=== PATIENT | male | born 1965 | race African-American/Black ===

== ENCOUNTER 2020-02-14 09:54 | Observation (INO) | payer OTHER ==
[~2020-02-14] VITALS: Ht 190.5 cm; Wt 93.7 kg
--- NOTE | 2020-02-14 09:54 | NUR ---
PATIENT TO ROOM VIA EMS. EMS REPORTED PATIENT RECIEVED THREE 0.4MG NITRO SL AND 324MG ASA AT THE [facility] JUST PRIOR TO ARRIVAL. MD AT BEDSIDE FOR EVAL
[2020-02-14 10:08] LABS: HEMATOCRIT 40.8 % (39.0-50.0); HEMOGLOBIN 13.1 g/dl (14.0-18.0); IMMATURE GRANULOCYTES 0.4 % (0.0-5.0); MEAN CELL VOLUME 93.4 fL CALC (80.0-100.0); MEAN CORPUSCULAR HGB CONC 32.1 g/dL CAL (32.0-36.0); NEUT# 2.2 thou/uL (1.82-7.42); RED BLOOD COUNT 4.37 mill/uL (4.70-6.10); RED CELL DISTRI WIDTH 14.1 % (11.5-15.5)
--- NOTE | 2020-02-14 10:10 | NUR ---
PT AO X 3. SKIN PINK WARM AND DRY. PT REPORTS PAIN FREE AT THIS TIME. CHANGED TO GOWN. MONITORS IN PLACE PT REPORTS PAIN DID CAUSE NAUSEA AND VOMITING THIS MORNING AROUND 0800. RESP EQUAL AND CLEAR. GUARDS AT BEDSIDE
[2020-02-14 10:21] LABS: ANION GAP 9 (6-22 (CALC)); BUN 14 mg/dL (9-20); BUN/CREATININE RATIO 19 (12-20 (CALC)); CARBON DIOXIDE 27 mmol/l (22-30); CHLORIDE 105 mmol/l (95-108); CREATININE 0.8 mg/dL (0.7-1.3); GFR > 60 ML/MIN (>=60 (CALC)); GFR FOR AFR.AMER. > 60 ML/MIN (>=60 (CALC)); POTASSIUM 3.5 mmol/l (3.5-5.1); SODIUM 138 mmol/l (137-146)
--- NOTE | 2020-02-14 10:54 | NUR ---
[facility] PRINTED TO FLOOR. WAITING FOR DISCHARGES BEFORE ABLE TO TAKE PT
--- NOTE | 2020-02-14 11:10 | NUR ---
PT RESTING ON STRETCHER. PAIN FREE AT THIS TIME. STATES HE IS HUNGRY AND WOULD LIKE LUNCH. LUNCH TRAY ORDERED
--- NOTE | 2020-02-14 12:15 | NUR ---
PT GIVEN LUNCH TRAY. CONTINUES TO BE PAIN FREE
--- NOTE | 2020-02-14 13:20 | NUR ---
REPORT GIVEN TO FRANKLIN POWELL. MED SURG
--- NOTE | 2020-02-14 13:35 | NUR ---
PT RECEIVED FROM THE ED. REPORT RECEIVED FROM SHELBY. PT ORIENTED TO ROOM. ASSESSMENT AND VITALS COMPLETE. PT STILL COMPLAINS OF NOT PAIN BUT PRESSURE IN HIS UPPER LEFT CHEST THAT RADIATES DOWN HIS LEFT ARM. CALL GALEANO WITHIN REACH. NO NEEDS STATED. WILL CONTINUE TO OBSERVE.
--- NOTE | 2020-02-14 13:40 | NUR ---
PT TAKEN VIA WHEELCHAIR TELEMETRY IN PLACE TO MED SURG
[2020-02-14 13:45] VITALS: BP 126/80
[2020-02-14 15:48] VITALS: BP 124/80
--- NOTE | 2020-02-14 16:07 | NUR ---
PT LAYING IN BED RESTING, NO APPARENT DISTRESS, RESPIRATIONS REG & UNLABORED. PT DENIES ANY OTHER NEEDS AT THIS TIME. ITEMS WITHIN REACH BED LOCKED IN LOW POSITION W/ BEDRAILS UP X2. CALL GALEANO WITHIN REACH, AGREES TO CALL PRN.
--- NOTE | 2020-02-14 19:05 | NUR ---
REPORT FROM FRANKLIN POWELL. PT NOTED RESTING IN BED WATCHING TV. ALERT AND ORIENTED. X2 GUARDS AT BEDSIDE PT SHACKLED BY CLOVIS. NO APPARENT DISTRESS NOTED. PT DENIES ANY PAIN OR DISCOMFORT. PICKLING MACHINE OPERATOR IN PLACE. IV SITE APPEARS HEALTHY. DISCUSSED POC. PT VERBALIZED UNDERSTANDING. ICE CREAM PROVIDED UPON REQUEST. CALL LIGHT WITHIN REACH. WILL CONTINUE TO MONITOR.
[2020-02-14 19:39] VITALS: BP 130/81
--- NOTE | 2020-02-14 20:59 | NUR ---
PT MEDICATED ORDERED, EDUCATION PROVIDED. NO APPARENT DISTRESS NOTED. PT CONTINUE TO DENY ANY PAIN OR DISCOMFORT. CALL LIGHT WITHIN REACH. WILL CONTINUE TO MONITOR.
[2020-02-15 00:14] VITALS: BP 127/68
--- NOTE | 2020-02-15 00:26 | NUR ---
COVID-19 SWAB RESULTS POSITIVE JUST RECEIVED. PT MOVED TO ROOM [address] ON AIR/CONTACT PRECAUTIONS. PT AND GUARDS EDUCATED AT THIS TIME. PT VERBALIZED UNDERSTANDING.
[2020-02-15 04:25] VITALS: BP 135/79
--- NOTE | 2020-02-15 04:25 | NUR ---
PT RESTING IN BED. NO APPARENT DISTRESS NOTED. X2 GUARDS REMAIN AT BEDSIDE. PT DENIES ANY PAIN, BUT STATES PRESSURE STILL PRESENT. MANAGER SPA IN PLACE. IV SITE REMAINS HEALTHY. PT DENIES ANY CURRENT WANTS OR NEEDS. VSS. CALL LIGHT WITHIN REACH. WILL CONTINUE TO MONITOR.
[2020-02-15 06:47] LABS: CHOLESTEROL HDL RATIO 1.9 (<4.4 (CALC)); MAGNESIUM 2.2 mg/dL (1.6-2.3)
[2020-02-15 08:00] VITALS: BP 140/73
--- NOTE | 2020-02-15 09:00 | NUR ---
PT SEEN AWAKE, ALERT, ORIENTED X 3. LUNGS CLEAR, RA. PT AMBULATORY IN ROOM, SHOWERED THIS MORNING. NO REPORT OF CHEST PAIN OR SHORTNESS OF BREATH. VSS. GUARDS X 2 AT BEDSIDE.
--- NOTE | 2020-02-15 11:00 | NUR ---
PT HAS BEEN DISCHARGED BACK TO FACILITY [facility]. PT VERBALIZES UNDERSTANDING OF DC INTRUCTIONS, WAS TAKEN BY WHEELCHAIR TO VEHICLE, GUARDS ACCOMPANYING. PT LEAVES [facility] IN STABLE CONDITION, NO CHEST PAIN OR SHORTNESS OF BREATH. REPORT WAS PROVIDED TO [facility] BY TELEPHONE.
== END 2020-02-15 10:45 | DRG 179 ==
LOC: ED 09:54 → ED-I 10:37 → ED 11:18 → MS2 11:19 → ED-I 11:19 → MS2 13:03
PROVIDERS: Family Medicine; Nurse Practitioner; ADMIT Internal Medicine; ATTEND Internal Medicine
DX: U07.1 COVID-19 (principal); R07.9 Chest pain, unspecified; F17.200 Nicotine dependence, unspecified, uncomplicated; Z82.49 Family history of ischemic heart disease and other diseases of the circulatory system
CPT/HCPCS: G0378; J1650